=== PATIENT | male | born 1945 | race Caucasian/White ===

== ENCOUNTER 2018-09-24 13:00 | Inpatient (IN) | payer BC, MEDICARE ==
[2018-10-08] MEDS ORDERED: MECLIZINE 25 MG TABLET PO ONE (06:00)
[2018-10-08] MEDS ORDERED: FAMOTIDINE 20MG TABLET PO ONE (06:00)
[2018-10-08] MEDS ORDERED: METOCLOPRAMIDE 10 MG TABLET PO ONE (06:00)
[2018-10-08] MEDS ORDERED: VANCOMYCIN HCL 1,000 MG in DEXTROSE 5 % IN WATER 250 ML IVPB ONE ×2 (06:00)
[2018-10-08] MEDS ORDERED: CELECOXIB 100 MG CAPSULE PO ONE (06:00)
[2018-10-08] MEDS ORDERED: CEFAZOLIN 2 Gram 2 GM/50 ML BAG IVPB ONE (06:00)
[2018-10-08 07:48] LABS: ABO GROUP A; ANTIBODY SCREEN NEGATIVE (NEGATIVE); RH TYPE NEGATIVE
[2018-10-08] MEDS ORDERED: BUPIVACAINE 0.5% W/EPI MPF 30 ML VIAL SQ ONE (10:01)
[2018-10-08] MEDS ORDERED: 0.9 % SODIUM CHLORIDE 1000ML 700 ML IV ONE (11:12)
[2018-10-08] MEDS ORDERED: ZOLPIDEM TARTRATE 5 MG TABLET PO PRN (11:24)
[2018-10-08] MEDS ORDERED: NALOXONE 0.4 MG/1 ML VIAL IVP PRN (11:24)
[2018-10-08] MEDS ORDERED: BISACODYL 10 MG SUPP RC PRN (11:24)
[2018-10-08] MEDS ORDERED: KETOROLAC 30 MG/ML VIAL IVP PRN ×2 (11:24)
[2018-10-08] MEDS ORDERED: HYDROMORPHONE HCL 2 MG/ML VIAL IM PRN (11:24)
[2018-10-08] MEDS ORDERED: TRAMADOL HCL 50 MG TABLET PO PRN (11:24)
[2018-10-08] MEDS ORDERED: ONDANSETRON HCL IV 4 MG/2 ML VIAL IVP PRN (11:24)
[2018-10-08] MEDS ORDERED: ACETAMINOPHEN W/ CODEINE 300MG/60MG TABLET PO PRN ×2 (11:24)
[2018-10-08] MEDS ORDERED: AL HYDROX/MAG HYDROX 30ML UD PO PRN (11:24)
[2018-10-08] MEDS ORDERED: MAGNESIUM HYDROXIDE 30 ML UDC PO PRN (11:24)
[2018-10-08] MEDS ORDERED: DIPHENHYDRAMINE HCL 25 MG CAPSULE PO PRN (11:24)
[2018-10-08] MEDS ORDERED: HYDROCODONE/APAP 10/325 TABLET PO PRN (11:24)
[2018-10-08] MEDS ORDERED: ACETAMINOPHEN 325 MG TAB PO PRN (11:24)
[2018-10-08] MEDS ORDERED: POTASSIUM CHLORIDE/D5-0.9%NACL 20 MEQ/1,000 ML BAG IV SCH (12:00)
[2018-10-08] MEDS ORDERED: ROPIVACAINE HCL (NAROPIN) /PF 5MG/ML 20ML VIAL IV ONE (15:02)
[2018-10-08] MEDS ORDERED: BUPIVACAINE 0.5% W/EPI MPF 30 ML VIAL IVP ONE (15:02)
[2018-10-08] MEDS ORDERED: DEXAMETHASONE 4 MG/ML 1ML VIAL IVP ONE (15:02)
[2018-10-08] MEDS ORDERED: PROPOFOL 10 MG/ML VIAL IV ONE (15:05)
[2018-10-08] MEDS ORDERED: EPHEDRINE SULFATE 50 MG/ML ML IV ONE (15:05)
[2018-10-08] MEDS ORDERED: LIDOCAINE 2% MDV (20MG/ML) 20ML VIAL IV ONE (15:05)
[2018-10-08] MEDS ORDERED: MIDAZOLAM HCL 2MG/2ML VIAL IV ONE (15:05)
--- NOTE | 2018-10-08 15:57 | Rehab Evaluation ---
Patient Information - Patient Information Diagnosis: L knee DJD Ordered Treatment: PT Evaluate and Treat Status: Initial Evaluation Surgery: Yes (L TKA) Date of Surgery: 10/08/18 Past Medical/Surgical Hx: PAST MEDICAL/SURGICAL HISTORY Past Surgical History BILATERAL INDIO RIGHT FOOT SX'S X'S 17 25 YRS AGO CARDIAC DOUBLE BYPASS 2015 HEART CATH LIVER BX C SCOPES PMH - Respiratory Hx Respiratory Disorders No PMH - Cardiovascular Hx Cardiovascular Disorders Yes Hx Abnormal EKG Yes Hx Cardiac Catheterization Yes: 2016 Hx Edema Yes: MILD LE LEFT GREATER THAN RIGHT Hx Hypertension Yes: GOOD CONTROL ON MEDS Hx Irregular Heartbeat Yes: BRADYCARDIA D/T BETA BLOCKERS Hx Coronary Artery Disease Yes Hx Coronary Artery Bypass Yes: DOUBLE 2016 Graft Exercise Tolerance Good Comment: 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 PMH - Hx Genitourinary Disorders No PMH - Endocrine Hx Endocrine Disorders No PMH - Musculoskeletal Hx Musculoskeletal Disorders Yes Hx Arthritis Yes: LEFT KNEE AND OTHER VARIOUS JOINTS PMH - Psych Hx Psychiatric Problems No PMH - Hematology/Oncology Hx Hematology/Oncology Yes Disorders Hx Blood Transfusion Reaction No Premorbid Status: Detail (The patient was independent with all mobility prior to surgery.) Social History: Detail (The lucas lives alone in a first floor apartment with an elevator at the enterance (no stairs). The bathroom is equipped with a walk in shower with a built in seat and grab bars and a standard height toilet without grab bars. The patient has a front wheel walker and cane.) Precautions: [place], Fall - Time With Patient Total Time Spent With Patient (Min): 30 Treatment Procedures: Detail (Initial Evaluation, gait training.) Subjective Information - Subjective Information Per Patient (The patient had no complaints of pain.) Objective Data - Mental Status Patient Orientation: Oriented x3 - Visual Perception Appears within normal limits for therapeutic activities - ROM Not within normal limits (The patient's L knee AROM is limited as to be expected following surgery. All other LE ROM is WFL.) - Strength/Tone Not within normal limits (The patient's L LE strength was not tested s/p surgery however was functional ie: the paient was able to lift L LE in and out of bed. The paient's R LE strength was functional.) - Bed Mobility Independent (The patient was independent with supine to and from sit transfer and scooting up in bed.) - Transfers Independent (The patient was independent with sit to and from stand transfer.) - Balance Balance Sitting: Good Balance Standing: Good - Sensation Intact - Gait Detail (The patient ambulated 250 feet with front wheeled walker WBAT on L LE with supervision for safety only.) Therapy Assessment - Therapy Assessment Detail (The patient was independent with bed mobility and transfers and ambulated with supervision for safety only. Feel the patient will progress well with mobility. Due to stable condition and few personal factors, PT evaluation complexity is rated as low.) Problem List - Problem List Physical Therapy Problem List: Detail (1) Decreased L knee AROM and decreased LE strength.) Goals - Goals Physical Therapy Goals: 1)The patient will be independent with TKA HEP. 2)The patient will express good understanding of stair climbing technique Prognosis - Prognosis Good Plan - Plan Physical Therapy Plan: PT 1-2 sessions for instruction in HEP and gait training.
[2018-10-08] MEDS: CEFAZOLIN 2 Gram 2 GM/50 ML BAG IVPB SCH (16:38)
[2018-10-08] MEDS: 0.9 % SODIUM CHLORIDE 1000ML 1,000 ML IV SCH (16:38)
[2018-10-08] MEDS: HYDROCODONE/APAP 10/325 TABLET PO PRN ×2 (16:38→22:38)
[2018-10-08] MEDS: DOCUSATE SODIUM 100 MG CAPSULE PO SCH (21:21)
[2018-10-08] MEDS ORDERED: ATORVASTATIN 20 MG TABLET PO SCH (22:00)
[2018-10-08] MEDS ORDERED: METOPROLOL SUCC 25 MG TAB.ER PO SCH (22:00)
[2018-10-09] MEDS: CEFAZOLIN 2 Gram 2 GM/50 ML BAG IVPB SCH ×2 (00:19→09:31)
[2018-10-09] MEDS: 0.9 % SODIUM CHLORIDE 1000ML 1,000 ML IV SCH ×2 (00:24→12:31)
[2018-10-09 06:30] LABS: HEMATOCRIT 28.5 % (42.0-52.0); HEMOGLOBIN 9.2 gm/dl (14.0-18.0)
[2018-10-09 06:43] LABS: BLOOD UREA NITROGEN 14 mg/dL (8-23); CREATININE 1.1 mg/dL (0.7-1.2); EST GLOMERULAR FILTRATION RATE > 60 mL/min; GLUCOSE,RANDOM 125 mg/dL (74-109)
[2018-10-09] MEDS ORDERED: PANTOPRAZOLE SODIUM 40 MG TABLET PO SCH (07:00)
--- NOTE | 2018-10-09 08:31 | Operative Note ---
DATE OF SURGERY: 10/08/2018 PREOPERATIVE DIAGNOSIS: End-stage arthrosis of the left knee. POSTOPERATIVE DIAGNOSIS: End-stage arthrosis of the left knee. OPERATION: Cemented left total knee arthroplasty using Vinson [employer] Nephew Shyla II components with a size 7 posterior stabilized femoral component, a size 7 stem tibia baseplate, a 13 mm posterior stabilized tibial insert, and a 35 mm all plastic patella. Staff Surgeon: Elvis Day MD Anesthesia: Spinal. PREPARATION: Chloraprep. INDIVIDUAL CONSIDERATIONS: None. PROCEDURE: The patient was taken to the operating room, placed supine on the operating room table. He had a successful induction with spinal anesthetic. The left lower extremity was prepped and draped in the usual fashion. The patient had a midline approach to the knee. The limb was elevated and tourniquet was inflated to 250 mmHg. Sharp dissection carried down through skin and subcutaneous tissue. Small veins were coagulated with a Bovie. A medial arthrotomy was performed. The patella was everted and the knee was flexed. He had exposed bone pretty much in all 3 compartments especially off the lateral tibial plateau. Fat pad was resected, ACL was sacrificed, provisional anterior meniscectomies were performed. The capsule was released from the medial proximal tibia. The initial femoral chain hoist operator hole was then made freehand. The intramedullary femoral cutting jig was placed. It was cut in 7.0 degrees of valgus and adjusted for rotation and secured with pins for a 10 mm resection. The initial transverse cut was then made. The skin guide was placed in the anterior and posterior chain hoist operator holes. It was found that a size 7 would be appropriate. The anterior and posterior cuts followed by chamfer cuts were made. Large osteophytes were removed, and a size 7 trial was placed and found to fit well. The tibia was brought forward, and the remainder of the meniscal remnants removed with a Bovie. The extraarticular tibial cutting jig was placed. It was cut in neutral with a 3-degree AP slope. Care was taken to adjust the rotation and flexion using the extraarticular alignment guide and bony landmarks. It was set for a 9 mm resection keyed off the high medial side and secured with pins. When cutting the tibia, I attempted to preserve the PCL but it was almost impossible. There was not much left. After removing osteophytes from medially and laterally, I was able to fit a 7 baseplate. It was adjusted for rotation and secured with pins. With a 13 mm liner, there was excellent motion and stability of the femoral trial but I did have to go ahead and box ream and ream for the posterior stabilized femoral component which I did with a guide. The tourniquet was let down briefly to get bleeders posteriorly and then placed back up again. The patient had a thick patella. Roughly 9 mm of bone was removed freehand, and the 3 chain hoist operator holes for a 35 mm patella were drilled. The knee was then thoroughly irrigated out with pulsatile Betadine and saline to remove any visual or palpable debris. Bony surfaces were then dried. A size 7 stem tibia baseplate was cemented into place followed by cementing in the size 7 posterior stabilized femoral component followed by impaction of the 13 mm thick posterior stabilized tibial insert and cementing in the 35 mm patella. It should be noted that prior to sizing the implant and the liner, I had to release the iliotibial band because since it was such a valgus knee, it was exceedingly tight, and once I released it, I was able to ligament balance with a 13 liner. Implant surfaces were compressed, excess cement was removed, and after the cement had set, there was excellent motion and stability, ligamentous balance, rotation alignment, and patellofemoral tracking were normal. No lateral release was required. Again thorough irrigation. Tourniquet was let down. Hemostasis was obtained with a Bovie. I then took 30 mL of 5% Marcaine with epinephrine, infiltrated the skin, subcutaneous tissue, and periosteum. The capsule was then closed with a running #2 quill, subcu was closed in layers with running 0 quill, skin was closed with erick. Then 1 g of tranexamic acid was mixed with 20 mL of saline and was injected into the knee through a sterile 18-gauge needle, and a sterile bulky compressive HANANE-type dressing was applied. The patient tolerated the procedure well. Needle and sponge counts were correct. Estimated blood loss was minimal, and he was taken back to recovery in good condition. There were no complications. KAMARI
--- NOTE | 2018-10-09 08:33 | Rehab Evaluation ---
Patient Information - Patient Information Diagnosis: L knee DJD Ordered Treatment: OT Evaluate and Treat Status: Initial Evaluation Surgery: Yes (L TKA) Date of Surgery: 10/08/18 Past Medical/Surgical Hx: PAST MEDICAL/SURGICAL HISTORY Past Surgical History BILATERAL INDIO RIGHT FOOT SX'S X'S 17 25 YRS AGO CARDIAC DOUBLE BYPASS 2016 HEART CATH LIVER BX C SCOPES PMH - Respiratory Hx Respiratory Disorders No PMH - Cardiovascular Hx Cardiovascular Disorders Yes Hx Abnormal EKG Yes Hx Cardiac Catheterization Yes: 2016 Hx Edema Yes: MILD LE LEFT GREATER THAN RIGHT Hx Hypertension Yes: GOOD CONTROL ON MEDS Hx Irregular Heartbeat Yes: BRADYCARDIA D/T BETA BLOCKERS Hx Coronary Artery Disease Yes Hx Coronary Artery Bypass Yes: DOUBLE 2016 Graft Exercise Tolerance Good Comment: 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 PMH - Hx Genitourinary Disorders No PMH - Endocrine Hx Endocrine Disorders No PMH - Musculoskeletal Hx Musculoskeletal Disorders Yes Hx Arthritis Yes: LEFT KNEE AND OTHER VARIOUS JOINTS PMH - Psych Hx Psychiatric Problems No PMH - Hematology/Oncology Hx Hematology/Oncology Yes Disorders Hx Blood Transfusion Reaction No Premorbid Status: Detail (The patient was independent with all mobility and laundry tasks prior to surgery. 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 The bathroom is equipped with a walk in shower with a built in seat and grab bars and a standard height toilet without grab bars. The patient has a front wheel walker, 4 wheeled walker, sock aid and cane.) Precautions: [place], Fall, Other (WBAT LEFT LE) - Time With Patient Total Time Spent With Patient (Min): 30 Treatment Procedures: Detail (OT eval low complexity) Subjective Information - Subjective Information Per Patient Objective Data - Pain Pain Present: Yes (0-1/10) - Mental Status Patient Orientation: Oriented x3 - Visual Perception Appears within normal limits for therapeutic activities (Pt wears glasses) - ROM Within normal limits (Jean-Paul UE AROM WNL) - Strength/Tone Within normal limits (Jean-Paul UE strength WNL) - Coordination Appears within normal limits for therapeutic activities - Bed Mobility Independent (Ind with supine to sit) - Transfers Independent (Ind with sit to stand from EOB and chair) - Balance Balance Sitting: Good Balance Standing: Good - Sensation Intact - Gait Detail (Pt ambulated in room with 2 wheeled walker Indly.) - ADL's/IADL's Detail (Pt educated and demonstrates learning of modified LE dressing technique including doffed slipper socks, donned leyla sock (with assist), pants, socks and work boots Indly. Reviewed bathroom and laundry safety and modifications, pt verbalized understanding.) Therapy Assessment - Therapy Assessment Detail (Pt safe and Ind with modified LE dressing techniques.) Problem List - Problem List Physical Therapy Problem List: Detail (1) Decreased L knee AROM and decreased LE strength.) Occupational Therapy Problem List: Detail (No current IP OT problems identified. ) Goals - Goals Physical Therapy Goals: 1)The patient will be independent with TKA HEP. 2)The patient will express good understanding of stair climbing technique Occupational Therapy Goals: No current IP OT goals identified. Prognosis - Prognosis Good Plan - Plan Physical Therapy Plan: PT 1-2 sessions for instruction in HEP and gait training. Occupational Therapy Plan: No further IP OT recommended at this time. Thank you for this referral.
[2018-10-09] MEDS: HYDROCODONE/APAP 10/325 TABLET PO PRN (09:29)
[2018-10-09] MEDS: DOCUSATE SODIUM 100 MG CAPSULE PO SCH (09:30)
[2018-10-09] MEDS ORDERED: CALCIUM CARBONATE 500 MG TAB.CHEW PO SCH (10:00)
[2018-10-09] MEDS ORDERED: RIVAROXABAN 10 MG TABLET PO SCH (10:00)
[2018-10-09] MEDS ORDERED: ASPIRIN 81 MG TABEC PO SCH (10:00)
[2018-10-09] MEDS ORDERED: FERROUS SULFATE 325 MG TAB PO SCH (10:00)
--- NOTE | 2018-10-09 11:01 | Physical Therapy Tx Note ---
Physical Therapy Tx Note - Treatment Note Tolerated: Good Total Time Spent With Patient: 25 Physical Therapy Tx Note: Detail (The patient was seated in chair when PT arrived and denied knee pain. The patient ambulated with front wheeled walker independently a distance of 200 feet x 1, WBAT on the L LE. The patient ambulated on 3 steps with use of walker and one railing with supervision for safety only using proper technique. The patient completed TKA HEP including: SLR , quad sets, hamstring sets, gluteal sets, ankle pumps, supine heel slides. The patient has met all inpatient PT goals and is discharged from inpt. PT.) Physical Therapy Problem List: Detail (1) Decreased L knee AROM and decreased LE strength.) Physical Therapy Goals: 1)The patient will be independent with TKA HEP (Goal PT) . 2)The patient will express good understanding of stair climbing technique ( Goal Met) Physical Therapy Plan: The patient has met all inpatient PT goals and is discharged from inpatient PT.
--- NOTE | 2018-10-10 07:53 | RADIOLOGY REPORT ---
EXAM: PORTABLE CHEST HISTORY: DIFFICULTY IN BREATHING. TECHNIQUE: A single AP view of the chest was performed. FINDINGS: Postop sternotomy wires. The heart size is normal. No infiltrate or pleural effusion. The osseous structures are normal. IMPRESSION: NO ACUTE PULMONARY DISEASE PROCESS. JOB NUMBER: [id number] MTDD
--- NOTE | 2018-10-11 08:20 | Discharge Summary ---
DATE OF ADMISSION: 10/08/2018 DATE OF DISCHARGE: 10/09/2018 DATE OF SURGERY: 10/08/2018 HISTORY: The patient is a delightful 72-year-old male who presents with end-stage arthrosis of his knee. He was admitted after total knee arthroplasty. Postoperatively, he did great. He was initially going to go to rehab but he did so well, he decided just to go home. His hospital course was unremarkable. His discharge hemoglobin was 9.2 and did not require transfusion. The plan is to discharge him to home in the care of his family and home PT and visiting nurse has been arranged. The visiting nurse will remove his sutures in 2 weeks. He will be given Nemacolin for pain and Xarelto followed by aspirin for DVT prophylaxis. He will follow up in my office in 4 weeks. FINAL DIAGNOSIS/PRIMARY DIAGNOSIS: End-stage arthrosis of the left knee. SECONDARY DIAGNOSIS: Operative blood loss anemia. OPERATIONS AND PROCEDURES: Cemented left total knee arthroplasty. DISCHARGE CONDITION: Good. KAMARI
== END 2018-10-09 12:45 | disposition home health service (06) | DRG 470 ==
LOC: SUR 10-08 06:53 → MEDSURG 10-08 06:53 → EDSTATUS 10-08 13:00
PROVIDERS: ADMIT Orthopaedic Surgery; ATTEND Orthopaedic Surgery
PROC: 0SRD0J9 Replacement of Left Knee Joint with Synthetic Substitute, Cemented, Open Approach (ICD-10-PCS; principal; 2018-10-08 09:00)
DX: M17.12 Unilateral primary osteoarthritis, left knee (principal); I10 Essential (primary) hypertension; E78.00 Pure hypercholesterolemia, unspecified; Z95.1 Presence of aortocoronary bypass graft; Z87.891 Personal history of nicotine dependence
CPT/HCPCS: 71045; 76942; 80048; 85014; 85018; 86850; 86900; 86901; 97110; 97530; J1885; J7030; J7060